=== PATIENT | male | born 1960 | race Caucasian/White ===

== ENCOUNTER → 2018-01-28 07:11 | Outpatient (CLI) | payer OTHER, SELFPAY ==
[2018-01-28 10:53] LABS: Absolute Lymphocyte Count 1.42 X10^3/ul (0.83-4.51); Basophil# 0.03 X10^3/uL; Basophil% 0.7 % (0-1); Eosinophil# 0.18 X10^3/uL; Eosinophils% 4.4 % (0-5); Hematocrit 46.1 % (40-54); Hemoglobin 15.1 g/dl (13.0-16.5); Lymphocyte # 1.42 X10^3/ul (4.0); Lymphocyte % 35.1 % (19-41); Mean Corp Hgb Conc 32.8 g/gl (32-36); Mean Corpuscular Hgb 30.1 pg (27.0-32.0); Mean Platelet Vol. 10.2 fl (6.2-12.0); Monocyte# 0.42 X10^3/uL; Monocyte% 10.4 % (0-10); Neutrophil % 49.4 % (47-70); Platelet Count 235 K/mm3 (150-450); Red Blood Count 5.01 M/mm3 (4.6-6.2); White Blood Count 4.1 K/mm3 (4.4-11.0)
[2018-01-28 10:54] LABS: POSITIVE COUNT NO; POSITIVE DIFFERENTIAL NO; POSITIVE MORPHOLOGY NO
[2018-01-28 11:13] LABS: Anion Gap 6 (5-15); BUN 19 mg/dL (7-18); BUN/Creat Ratio 20.7 RATIO (10-20); Calcium,Total 8.6 mg/dL (8.5-10.1); Chloride 105 mmol/L (98-107); Cholesterol 234 mg/dL (200); Creatinine, Serum 0.92 mg/dL (0.70-1.30); EST Glomerular Filtration Rate 89 mL/min (>60); Est Glom Filt Rate - Afr Amer 108 mL/min (>60); Glucose 97 mg/dL (74-106); High Density Lipoprotein 52 mg/dL; PSA,Total - Annual Screen 0.86 ng/mL (0.00-4.00); Potassium 4.4 mmol/L (3.5-5.1); Sodium Level 139 mmol/L (136-145); Thyroid Stim Hormone (TSH) 3.66 uIU/mL (0.358-3.74); Triglycerides 96 mg/dL; Very Low Density Lipoprotein 19 mg/dL (5-40)
== END ==
PROVIDERS: Family Provider Family Medicine; PCP Family Medicine; Referring Provider Family Medicine; Visit Provider Family Medicine
DX: K14.6 Glossodynia (principal); E78.00 Pure hypercholesterolemia, unspecified; Z12.5 Encounter for screening for malignant neoplasm of prostate
CPT/HCPCS: 36415; 80048; 80061; 84153; 84443; 85025; G0103

== ENCOUNTER → 2019-07-24 08:02 | Outpatient (CLI) | payer OTHER, SELFPAY ==
[2019-07-24 10:34] LABS: Erythrocyte Sedimentation Rate 6 mm/hr (0-20)
[2019-07-24 10:36] LABS: Absolute Lymphocyte Count 1.37 X10^3/uL (0.83-4.51); Absolute Neutrophil Count 1.6 X10^3/uL (2.0-7.7); Basophil# 0.04 X10^3/uL; Basophil% 1.1 % (0-1); Eosinophil# 0.17 X10^3/uL; Eosinophils% 4.7 % (0-5); Hematocrit 46.1 % (40-54); Lymphocyte # 1.37 X10^3/ul (4.0); Mean Corp Hgb Conc 32.5 g/dL (32-36); Mean Corpuscular Hgb 30.3 pg (27.0-32.0); Mean Corpuscular Volume 93.1 fL (80-94); Mean Platelet Vol. 9.9 fl (6.2-12.0); Monocyte# 0.39 X10^3/uL; Monocyte% 10.8 % (0-10); NRBC Flagged by Analyzer 0 % (0-5); Neutrophil # 1.64 X10^3/uL (2.7-7.7); Neutrophil % 45.4 % (47-70); Platelet Count 263 K/mm3 (150-450); RBC Distribution Width CV 12.4 % (11.6-14.6); RBC Distribution Width SD 42.5 fl (35.1-43.9); Red Blood Count 4.95 M/mm3 (4.6-6.2); White Blood Count 3.6 K/mm3 (4.4-11.0)
[2019-07-24 16:03] LABS: AST(SGOT) 27 U/L (15-37); Alanine Aminotransfer ALT/SGPT 41 U/L (16-61); Albumin, Serum 3.4 g/dL (3.2-5.0); Alkaline Phosphatase 83 U/L (45-117); Anion Gap 9 (5-15); BUN 20 mg/dL (7-18); BUN/Creat Ratio 23.9 RATIO (10-20); CRP < 2.90 mg/L (0.0-3.0); Calcium,Total 8.4 mg/dL (8.5-10.1); Chloride 106 mmol/L (98-107); Cholesterol 247 mg/dL (200); Creatinine, Serum 0.84 mg/dL (0.70-1.30); EST Glomerular Filtration Rate 99 mL/min (>60); Est Glom Filt Rate - Afr Amer 120 mL/min (>60); Globulin 3.4 g/dL (2.2-4.2); Glucose 101 mg/dL (74-106); High Density Lipoprotein 62 mg/dL; Potassium 4.1 mmol/L (3.5-5.1); Protein, Total 6.8 g/dL (6.4-8.2); Rheumatoid Factor < 10.0 IU/mL (<15); Sodium Level 139 mmol/L (136-145); Triglycerides 57 mg/dL; Very Low Density Lipoprotein 11 mg/dL (5-40)
[2019-07-27 13:11] LABS: ANTINUCLEAR ANTIBODIES DIRECT Negative (Negative)
== END ==
PROVIDERS: PCP Family Medicine; Referring Provider Family Medicine; Visit Provider Family Medicine
DX: E78.00 Pure hypercholesterolemia, unspecified (principal); M25.50 Pain in unspecified joint
CPT/HCPCS: 36415; 80053; 80061; 85025; 85652; 86038; 86140; 86431

== ENCOUNTER 2019-09-04 07:30 | Outpatient (RCR) | payer OTHER, SELFPAY ==
--- NOTE | 2019-07-24 07:57 | HP.PTEVAL_ITS ---
Patient's Visit Information J LUIS DUARTE is a 59 year old M referred to Physical Therapy by Dr. Siddhartha Gonzalez MD with a diagnosis of Neck pain, back pain.. Date of Evaluation: 07/24/19 Physical Therapist: Alexis Hidalgo DPT, OCS, CSCS - Visit Plan Frequency: 2x /Week Duration: 4-6 Weeks Plan: 2x/week for 4-6 weeks for... 1. Cervical ret/ext biased ex to postural and cervical strength and ext mobs as needed. 2. LB ROM including ext adn rotation progressing to core strength. Postural focus and body mechanics. - Subjective On etodolac for back pain and went to doctor for refill and said he had neck pain for 3 months. Been off pain meds for a couple days and pain level is higher. Neck pain is newer, 3 months insidous onset. Pain is at base of skull, dulla ancelmo and pretty constant. It is up to 6/10 and is worse with a lot of neck movements. achy at rest. Gets some tingling in his finger tips when sits with laptop on lazy boy L>R, gone quickly and that has happened in the past. Gone with movement. LBP is chronic and been there for years. Insidious onset. H/o surgery for sciatica L leg cleaning spine out 8 yrs ago. Had some L knee pain a month ago and in L thigh. Piriformis stretch helped the leg pain. LB continues to hurt at end of day. Is a [place]. 7/10 at end of busy day. Sleep is interrupted as it is challenging to get to sleep. Doesn't sleep long and needs sleepign pill. Avoids yard work afasic aDLs are getting done - Pain neck pain Pain Intensity (Out of 10): 2 Pain Intensity Range: 0, 5 LBP Pain Intensity (Out of 10): 2 Pain Intensity Range: 0, 7 - Objective c/s AROM 45 B rotations, 10 B SB, stiff and slight increased pain with rotations, ext 50 and increased pain, felxion full. LB AROM:ext max limited and painful, flexion max limited, SB mod limited. reflexes 2/3 patella and achilles and bi and tri. Sensation UE and LE WNL to gross light touch. Strength UE 4+/5 and LE 5/5 except B hip flexion/abd/ext which is 4- B. No soft tissue tenderness in neck or LB. PA pressure is painful LB. - compression test neck. Walks well and normal, transfers I. repeated motion neck protrusion W during and worse rotation ROM. repeated ret: PDM, B after, better motion. repeated ext: improved motion , PDM,. - SLR, - slump - Goals Goal 1:: Sleep without interruption from pain at night. Goal Time Frame: 4-6 Weeks Goal 2:: Full cervical ROM without pain and LB improved ROM to min deficits in flex/ext Goal Time Frame: 4-6 Weeks Goal 3:: Patient at 75% improved adn 2/10 max pain intermittent in spine. Goal Time Frame: 4-6 Weeks Goal 4:: Work without increased pain in LB Goal Time Frame: 4-6 Weeks Goal 5:: <20% disability on LB oswestry - Rehabilitation Potential Physical Therapy Diagnosis: Neck and back pain and stiffness. Rehabilitation Potential: Good - Anticipated Interventions Patient/Client Instruction: Educate patient on: Condition, Plan of Care For the Purpose of:: To decrease pain, To increase ROM, To improve muscle performance and motor function, To improve ability to perform ADL's, To improve ability of physical actions for home/community/work/leisure Therapeutic Exercise to Include: Strength training, Postural training, Flexibilty training, Passive ROM, Active ROM, Shilpi Exercises For the Purpose of:: To decrease pain, To increase ROM, To improve muscle performance and motor function, To increase tolerance to activity/condition/position Manual Therapy Techniques to Include: Mobilization, Passive ROM For the Purpose of:: To decrease pain, To increase ROM Thank you for the opportunity to evaluate your patient. For Medicare and Medicare HMO plans, please review the plan of care and approve it. It will need to be FAXED BACK to us at [phone] for Medicare purposes. For Medicare only, by signing this I certify the plan of care. Please let me know if there are questions or concerns regarding this plan of care. Physician Signature: ___Date:
--- NOTE | 2019-09-04 08:17 | HP.PTDCSUM_ITS ---
It has been my pleasure to treat J LUIS DUARTE referred by Dr. Siddhartha Gonzalez MD, with the diagnosis of Neck pain, back pain. for a total of 13 visit(s). Discharge Date: 09/04/19 Please see the following information for a summary of their discharge status. Subjective: Pt. reports having some pain in his neck and low back pain in minimal. Pt. reports being HEP compliant with all of his exercises neck pain Pain Intensity (Out of 10): 0 LBP Pain Intensity (Out of 10): 0 % Improvement: 85 Objective/Function: ROM: LUMBAR SPINE: flexion- nil loss NE, extnsion min loss (mostly at lower lumbar segments) NE, SB full Edwar NE, rotation full NE. CERVICAL SPINE: extension- full NE, flexion full NE, rotation min/nil loss NE. Pt. has increased ROM throughout lumbar and cervical spine. Pt. is overall doing much better. Slight soreness at end range, but minimal. Pt. has a good HEP and is impriving with his ROM. Pt. has made great gains in his ROM of both neck and lumbar spine. Goal 1:: Sleep without interruption from pain at night. Goal Progress: Goal Met Goal 2:: Full cervical ROM without pain and LB improved ROM to min deficits in flex/ext Goal Progress: Goal Met Goal 3:: Patient at 75% improved adn 2/10 max pain intermittent in spine. Goal Progress: Goal Met Goal 4:: Work without increased pain in LB Goal Progress: Goal Met Goal 5:: <20% disability on LB oswestry Goal Progress: Goal Met Plan: Pt. will be DC to HEP at this point in time. Discharge Comments: Pt. has made great gains with his ROM and pain reduction. Pt. has some slight loss of lumbar extension, but is progressing. Pt. is 85% better overall and has a good HEP to continue to progress. Pt. is pleased [facility] therapy and will be DC to HEP with focus on consistency with cervical rotation/extension and lumbar extension progression. Pt. consents. If there are questions or concerns regarding this patient's physical therapy, please feel free to call me at [phone]. Thank you for the referral of this patient. Sincerely, Kelvin Mitchell DPT
== END 2019-09-04 13:57 | disposition home or self-care (01) ==
LOC: PT 07:30
PROVIDERS: PCP Family Medicine; Referring Provider Family Medicine; Visit Provider Family Medicine
DX: M54.2 Cervicalgia (principal); M54.5 Low back pain
CPT/HCPCS: 97110; 97140; 97163; 97164; 97530

== ENCOUNTER → 2020-03-08 13:53 | Outpatient (CLI) | payer OTHER, SELFPAY ==
[2020-03-08 15:46] LABS: Cholesterol 249 mg/dL (200); High Density Lipoprotein 62 mg/dL; Triglycerides 67 mg/dL; Very Low Density Lipoprotein 13 mg/dL (5-40)
== END ==
PROVIDERS: PCP Family Medicine; Referring Provider Family Medicine; Visit Provider Family Medicine
DX: E78.00 Pure hypercholesterolemia, unspecified (principal)
CPT/HCPCS: 36415; 80061

== ENCOUNTER → 2020-12-08 07:16 | Outpatient (CLI) | payer OTHER, SELFPAY ==
[2020-12-08 10:08] LABS: Absolute Lymphocyte Count 1.39 X10^3/uL (0.83-4.51); Absolute Neutrophil Count 1.9 X10^3/uL (2.0-7.7); Basophil# 0.02 X10^3/uL; Basophil% 0.5 % (0-1); Eosinophil# 0.14 X10^3/uL; Eosinophils% 3.6 % (0-5); Hematocrit 44.2 % (40-54); Hemoglobin 14.4 g/dL (13.0-16.5); Lymphocyte # 1.39 X10^3/ul (0.83-4.51); Lymphocyte % 36.1 % (19-41); Mean Corp Hgb Conc 32.6 g/dL (32-36); Mean Corpuscular Hgb 31.1 pg (27.0-32.0); Mean Corpuscular Volume 95.5 fL (80-94); Mean Platelet Vol. 9.3 fl (6.2-12.0); Monocyte# 0.43 X10^3/uL; Monocyte% 11.2 % (0-10); NRBC Flagged by Analyzer 0 % (0-5); Neutrophil # 1.87 X10^3/uL (2.7-7.7); Neutrophil % 48.6 % (47-70); Platelet Count 246 K/mm3 (150-450); RBC Distribution Width CV 12.5 % (11.6-14.6); RBC Distribution Width SD 44.1 fl (35.1-43.9); Red Blood Count 4.63 M/mm3 (4.6-6.2); White Blood Count 3.9 K/mm3 (4.4-11.0)
[2020-12-08 10:40] LABS: ALB/GLOB Ratio 0.9 RATIO (0.9-2.4); AST(SGOT) 23 U/L (15-37); Alanine Aminotransfer ALT/SGPT 34 U/L (16-61); Albumin, Serum 3.1 g/dL (3.2-5.0); Alkaline Phosphatase 77 U/L (45-117); Anion Gap 7 (5-15); BUN 24 mg/dL (7-18); BUN/Creat Ratio 28.6 RATIO (10-20); Calcium,Total 8.3 mg/dL (8.5-10.1); Chloride 105 mmol/L (98-107); Cholesterol 226 mg/dL (200); Creatinine, Serum 0.84 mg/dL (0.70-1.30); EST Glomerular Filtration Rate 98 mL/min (>60); Est Glom Filt Rate - Afr Amer 119 mL/min (>60); Globulin 3.6 g/dL (2.2-4.2); Glucose 94 mg/dL (74-106); High Density Lipoprotein 76 mg/dL; PSA,Total - Annual Screen 1.17 ng/mL (0.00-4.00); Protein, Total 6.7 g/dL (6.4-8.2); Sodium Level 138 mmol/L (136-145); Triglycerides 46 mg/dL; Very Low Density Lipoprotein 9 mg/dL (5-40)
== END ==
PROVIDERS: PCP Family Medicine; Referring Provider Family Medicine; Visit Provider Family Medicine
DX: E78.00 Pure hypercholesterolemia, unspecified (principal); Z12.5 Encounter for screening for malignant neoplasm of prostate
CPT/HCPCS: 36415; 80053; 80061; 84153; 85025; G0103

== ENCOUNTER → 2021-11-24 | Outpatient (CLI) | payer OTHER, SELFPAY ==
[2021-11-24 12:55] LABS: ALB/GLOB Ratio 0.9 RATIO (0.9-2.4); AST(SGOT) 22 U/L (15-37); Alanine Aminotransfer ALT/SGPT 29 U/L (16-61); Albumin, Serum 3.3 g/dL (3.2-5.0); Alkaline Phosphatase 85 U/L (45-117); Anion Gap 8 (5-15); BUN 20 mg/dL (7-18); BUN/Creat Ratio 22.7 RATIO (10-20); Chloride 106 mmol/L (98-107); Creatinine, Serum 0.88 mg/dL (0.70-1.30); EST Glomerular Filtration Rate 93 mL/min (>60); Est Glom Filt Rate - Afr Amer 112 mL/min (>60); Globulin 3.6 g/dL (2.2-4.2); Glucose 108 mg/dL (74-106); Potassium 4.4 mmol/L (3.5-5.1); Protein, Total 6.9 g/dL (6.4-8.2); Sodium Level 139 mmol/L (136-145)
== END | disposition home or self-care (01) ==
LOC: MFPLAB 10:40
PROVIDERS: PCP Family Medicine; Referring Provider Family Medicine; Visit Provider Family Medicine
DX: R55 Syncope and collapse (principal)
CPT/HCPCS: 36415; 80053

== ENCOUNTER 2022-01-16 08:00 | Outpatient (RCR) | payer OTHER, SELFPAY ==
--- NOTE | 2021-11-30 15:59 | HP.PTEVAL ---
Patient's Visit Information J LUIS DUARTE is a 61 year old M referred to Physical Therapy by Dr. Queenie Elam MD with a diagnosis of R shoulder tendonitis. Date of Evaluation: 11/30/21 Physical Therapist: Toi Ac, PT, ATC - Visit Plan Frequency: 2x /Week Duration: 2 Weeks Plan: Issue and instruct pt on HEP over the next 3 visits consisting of rotator cuff and scap stab ex's - Subjective Pt reports his R shoulder has been sore for over one year, but has progressively worsened over the past couple months. 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 Pt reports his pain is intermittent in nature, but the pain is present more often than not. Pt is R hand dominant. Pt denies any tingling or numbness in r UE. Pt notes he has not had any recent diagnostic tests at this time. Pt reports sleep difficulty at this time secondary to pain. Pt reports lifting anything in front of him or lifting his R UE overhead all causes increased pain. Pt reports he has had this pain in the past, but it went away on its own without any treatment. 4/10 pain in the R shoulder at rest, 9/10 pain at worst (when his R shoulder catches) - Pain R shoulder Pain Intensity (Out of 10): 4 Pain Intensity Range: 9 - Objective Neuro: B UE sensation is WNL to light touch. B bicipital reflex= 2/3. Palpation: Crepitus with AROM. No pain or obvious deformity with palpation. ROM: L shoulder flex= 145, abd= 155, ER= 45, IR WNL; R shoulder flex= 125, abd= 115, ER= 60, IR WNL. MMT: L shoulder flex= 15, abd= 17, ER= 17, IR= 22; R shoulder flex= 13, abd= 16, ER= 19, IR= 19 #F. Special tests: Pos HK, pos speeds test - Balance/Special Test Scores Quick DASH Score: 29.5450 - Goals Goal 1:: Decrease R shoulder pain x 50% to aid with sleep Goal Time Frame: 4-6 Weeks Goal 2:: Increase R shoulder flex and abd ROM x 15 degrees to aid with overhead lifting Goal Time Frame: 4-6 Weeks Goal 3:: Increase R shoulder strength x 2-5 #F to aid with work requirements Goal Time Frame: 4-6 Weeks Goal 4:: I with HEP Goal Time Frame: 4-6 Weeks - Rehabilitation Potential Physical Therapy Diagnosis: Pt has R shoulder pain, limited ROM, and weakness secondary to impingement syndrome of the R shoulder Rehabilitation Potential: Good - Anticipated Interventions Patient/Client Instruction: Educate patient on: Condition, Plan of Care For the Purpose of:: To improve self management Therapeutic Exercise to Include: Strength training, Active ROM, Scapular Strength/Stabilization For the Purpose of:: To decrease pain, To increase ROM, To improve muscle performance and motor function Thank you for the opportunity to evaluate your patient. For Medicare and Medicare HMO plans, please review the plan of care and approve it. It will need to be FAXED BACK to us at [phone] for Medicare purposes. For Medicare only, by signing this I certify the plan of care. Please let me know if there are questions or concerns regarding this plan of care. Physician Signature: Date:
--- NOTE | 2022-01-16 08:32 | HP.PTDCSUM ---
It has been my pleasure to treat J LUIS DUARTE referred by Dr. Queenie Elam MD, with the diagnosis of R shoulder tendonitis for a total of 4 visit(s). Discharge Date: Please see the following information for a summary of their discharge status. Subjective: I am feeling better overall R shoulder Pain Intensity (Out of 10): 3 % Improvement: 50 Objective/Function: R shoulder pain 3/10 and pt does not have sleep difficulty at this time. R shoulder ROM: flex= 155, abd= 140 degrees. R shoulder MMT: flex= 12, abd= 11, ER= 20, IR= 22 #F. Pt is I with HEP. Goal 1:: Decrease R shoulder pain x 50% to aid with sleep Goal Progress: Goal Met Goal 2:: Increase R shoulder flex and abd ROM x 15 degrees to aid with overhead lifting Goal Progress: Goal Met Goal 3:: Increase R shoulder strength x 2-5 #F to aid with work requirements Goal Progress: Goal Met Goal 4:: I with HEP Goal Progress: Goal Met Plan: Discontinue to HEP If there are questions or concerns regarding this patient's physical therapy, please feel free to call me at [phone]. Thank you for the referral of this patient. Sincerely, Toi Ac, PT, ATC Balance/Gait/Functional tests - Balance/Special Test Scores Quick DASH Score: 20.4539
== END 2022-01-16 08:42 | disposition home or self-care (01) ==
LOC: PT 08:00
PROVIDERS: PCP Family Medicine; Visit Provider Family Medicine
DX: M75.31 Calcific tendinitis of right shoulder (principal)
CPT/HCPCS: 97110; 97161; 97164

== ENCOUNTER → 2022-05-11 | Outpatient (CLI) | payer OTHER, SELFPAY ==
[2022-05-11 10:59] LABS: PSA,Total - Annual Screen 1.26 ng/mL (0.00-4.00)
== END | disposition home or self-care (01) ==
LOC: MTLAB 09:00
PROVIDERS: PCP Family Medicine; Referring Provider Family Medicine; Visit Provider Family Medicine
DX: Z12.5 Encounter for screening for malignant neoplasm of prostate (principal)
CPT/HCPCS: 36415; 84153; G0103

== ENCOUNTER → 2022-11-09 | Outpatient (CLI) | payer OTHER, SELFPAY ==
[2022-11-09 12:24] LABS: Absolute Lymphocyte Count 1.89 X10^3/uL (0.83-4.51); Basophil# 0.03 X10^3/uL; Basophil% 0.5 % (0-1); Eosinophils% 1.5 % (0-5); Hematocrit 46.9 % (40-54); Lymphocyte # 1.89 X10^3/ul (0.83-4.51); Lymphocyte % 28.8 % (19-41); Mean Corpuscular Volume 93.8 fL (80-94); Monocyte# 0.56 X10^3/uL; Monocyte% 8.5 % (0-10); NRBC Flagged by Analyzer 0 % (0-5); Neutrophil # 3.96 X10^3/uL (2.7-7.7); Neutrophil % 60.2 % (47-70); Platelet Count 322 K/mm3 (150-450); RBC Distribution Width SD 44.7 fl (35.1-43.9); White Blood Count 6.6 K/mm3 (4.4-11.0)
== END | disposition home or self-care (01) ==
LOC: MTLAB 09:46
PROVIDERS: PCP Family Medicine; Referring Provider Family Medicine; Visit Provider Family Medicine
DX: T14.8XXA Other injury of unspecified body region, initial encounter (principal)
CPT/HCPCS: 36415; 85025

== ENCOUNTER → 2024-05-05 | Outpatient (CLI) | payer OTHER, SELFPAY ==
[2024-05-05 15:22] LABS: Absolute Lymphocyte Count 1.62 X10^3/uL (0.83-4.51); Basophil# 0.04 X10^3/uL; Basophil% 0.9 % (0-1); Eosinophil# 0.09 X10^3/uL; Eosinophils% 2.1 % (0-5); Hematocrit 47.1 % (40-54); Hemoglobin 15.6 g/dL (13.0-16.5); Lymphocyte # 1.62 X10^3/ul (0.83-4.51); Lymphocyte % 38.2 % (19-41); Mean Corp Hgb Conc 33.1 g/dL (32-36); Mean Corpuscular Hgb 30.1 pg (27.0-32.0); Mean Corpuscular Volume 90.8 fL (80-94); Mean Platelet Vol. 10.5 fl (6.2-12.0); Monocyte# 0.48 X10^3/uL; Monocyte% 11.3 % (0-10); NRBC Flagged by Analyzer 0 % (0-5); Neutrophil % 47.3 % (47-70); Platelet Count 243 K/mm3 (150-450); RBC Distribution Width CV 13.1 % (11.6-14.6); RBC Distribution Width SD 43.7 fl (35.1-43.9); Red Blood Count 5.19 M/mm3 (4.6-6.2); White Blood Count 4.2 K/mm3 (4.4-11.0)
[2024-05-06 05:58] LABS: ALB/GLOB Ratio 1.6 RATIO (0.9-2.4); AST(SGOT) 26 U/L (<=37); Alanine Aminotransfer ALT/SGPT 26 U/L (<=46); Albumin, Serum 4.1 g/dL (3.4-4.8); Alkaline Phosphatase 73 U/L (40-129); Anion Gap 14 (5-15); BUN 19 mg/dL (4-19); BUN/Creat Ratio 23.4 RATIO (10-20); Calcium 9.1 mg/dL (7.6-11.0); Carbon Dioxide 19.2 mmol/L (22.0-29.0); Chloride 104 mmol/L (96-108); Cholesterol 279 mg/dL (<=200); Creatinine, Serum 0.8 mg/dL (0.8-1.3); EST Glomerular Filtration Rate 98 (>60); Globulin 2.6 g/dL (2.2-4.2); Glucose 77 mg/dL (70-99); High Density Lipoprotein 71 mg/dL; Potassium 4.4 mmol/L (3.3-5.1); Protein, Total 6.6 g/dL (5.9-8.4); Sodium Level 138 mmol/L (133-145); Total Bilirubin 0.69 mg/dL (0.00-1.30); Triglycerides 51 mg/dL; Very Low Density Lipoprotein 10 mg/dL (5-40)
[2024-05-07 04:26] LABS: Vitamin D,25 Hydroxy 24.4 ng/mL (30-100)
== END | disposition home or self-care (01) ==
LOC: MTLAB 13:32
PROVIDERS: PCP Family Medicine; Referring Provider Family Medicine; Visit Provider Family Medicine
DX: I49.9 Cardiac arrhythmia, unspecified (principal)
CPT/HCPCS: 36415; 80053; 80061; 82306; 84443; 85025

== ENCOUNTER → 2024-05-28 | Outpatient (CLI) | payer OTHER, SELFPAY | END | disposition home or self-care (01) | LOC: LAB 12:13 | PROVIDERS: PCP Family Medicine; Referring Provider Internal Medicine Cardiovascular Disease; Visit Provider Internal Medicine Cardiovascular Disease | DX: I49.9 Cardiac arrhythmia, unspecified (principal) | CPT/HCPCS: 36415; 83735 ==

== ENCOUNTER → 2024-06-24 | Outpatient (CLI) | payer OTHER, SELFPAY ==
--- NOTE | 2024-06-24 07:27 | ECHOD_ITS ---
Reason For Study Reason For Study: PALPITATIONS Procedure This was a 2D Doppler, Color Flow transthoracic echocardiogram. Exam performed in department. Left Ventricle Normal size and thickness. The LV systolic function is normal. EF is 65 %. Normal diastology for age. Right Ventricle Normal right ventricle. Atria The left atrium is mildly enlarged. Normal right atrium. Mitral Valve Mild (1+) mitral valve insufficiency. Tricuspid Valve Mild tricuspid valve insufficiency. Right ventricular systolic pressure estimated to be 37 mmHg. Aortic Valve Trisinus/trileaflet aortic valve. Pulmonic Valve The pulmonic valve is not well visualized. Great Vessels Normal sized aortic root. Pericardium/Pleural No pericardial effusion. MMode/2D Measurements & Calculations LVIDd: 4.6 cm IVSd: 0.92 cm Ao root diam: 3.4 cm LVIDs: 3.0 cm LVPWd: 0.93 cm RVDd: 3.6 cm FS: 33.6 % LAV(MOD-bp): 54.7 ml LVAd ap4: 29.8 cm2 SV(MOD-sp4): 52.9 ml LAV(MOD-bp) Indexed: 27.7 ml/m2 LVLd ap4: 8.6 cm SI(MOD-sp4): 26.8 ml/m2 LAV(MOD-sp2): 58.7 ml EDV(MOD-sp4): 86.6 ml LAV(MOD-sp4): 52.1 ml EDV(sp4-el): 88.3 ml LVAs ap4: 15.8 cm2 LVLs ap4: 6.7 cm ESV(MOD-sp4): 33.7 ml ESV(sp4-el): 31.5 ml EF(MOD-sp4): 61.1 % EF(sp4-el): 64.3 % SV(sp4-el): 56.8 ml LA A4 area: 19.8 cm2 LA dimension(2D): 4.0 cm RA A4 area: 18.0 cm2 TAPSE: 2.8 cm Time Measurements MV dec time: 0.26 sec Doppler Measurements & Calculations MV E max ravi: 75.8 cm/sec Lat Peak E' Ravi: 11.5 cm/sec Med Peak E' Ravi: 9.1 cm/sec MV A max ravi: 88.8 cm/sec E/E' lat: 6.6 E/E' med: 8.3 MV E/A: 0.85 Ao V2 max: 153.5 cm/sec LV V1 max: 116.7 cm/sec PA V2 max: 129.2 cm/sec Ao max P.4 mmHg LV V1 max P.4 mmHg TR max ravi: 285.7 cm/sec TR max P.6 mmHg ECHO/Echo Complete Interpretation Summary The LV systolic function is normal. EF is 65 %. The left atrium is mildly enlarged. Mild (1+) mitral valve insufficiency. Mild tricuspid valve insufficiency. Right ventricular systolic pressure estimated to be 37 mmHg. Ordering Physician: Merly Garcia Referring Physician: NORA STEWARD Performed By: Lakeshia Castelan RDCS
--- NOTE | 2024-06-24 17:29 | STRESSREP ---
Stress Test Report Date: 06/24/2024 Procedure: Exercise tolerance test/imaging study Indications: Preoperative, arrhythmia Consent: Per the patient Procedure: The patient exercised on a Catracho protocol for 8 minutes achieving a peak heart rate of 151 bpm (98% predicted maximal heart rate) with a peak blood pressure 156/80 mmHg and a peak MET capacity of 10.1 METs. The baseline ECG demonstrated sinus rhythm with frequent PVCs. The peak exercise ECG showed no ischemic changes. Frequent PVCs noted pretest, during exercise and in recovery. The functional capacity was considered very good. There was no complaint of chest discomfort during exercise or recovery. The examination was discontinued secondary to target heart rate being achieved. The patient was injected with 13.3 mCi of technetium 99m Cardiolite and subsequently rest SPECT Cardiolite nuclear imaging was obtained in the horizontal long, vertical long, and short axis views. Post-exercise, the patient was injected with 42.9 mCi of technetium 99m Cardiolite and subsequently stress SPECT Cardiolite nuclear imaging was obtained in the horizontal long, vertical long, and short axis views. A gated Cardiolite study at peak stress was obtained. Rest and stress SPECT Cardiolite nuclear imaging status post realignment, normalization, and attenuation correction, demonstrates the appearance of relative uniform tracer uptake and myocardial perfusion appearing within normal limits. There is end systolic thickening and brightening. The gated Cardiolite study demonstrates myocardial thickening and inward wall motion. The reported LVEF is 73%. Impression: 1. Technically adequate (percent predicted maximal heart rate greater than 85%) exercise tolerance test 2. Peak exercise ECG with no ischemic changes 3. Frequent PVCs noted pretest, during exercise and in recovery 4. Rest and stress SPECT Cardiolite nuclear imaging demonstrate relative uniform tracer uptake and myocardial perfusion appearing within normal limits. 5. The gated Cardiolite study reports an LVEF of 73%. This note was generated with [employer] software. It may contain incorrect words, spelling, and punctuation that were not noted in checking the note before signing.
== END | disposition home or self-care (01) ==
PROVIDERS: PCP Family Medicine; Referring Provider Internal Medicine Cardiovascular Disease; Visit Provider Internal Medicine Cardiovascular Disease
DX: R07.9 Chest pain, unspecified (principal); R01.1 Cardiac murmur, unspecified; R06.09 Other forms of dyspnea; I49.9 Cardiac arrhythmia, unspecified
CPT/HCPCS: 78452; 93017; 93306; A9500; A4216